=== PATIENT | female | born 1960 | race Caucasian/White ===

== ENCOUNTER → 2016-10-26 | Outpatient (CLI) | payer OTHER ==
[~2016-10-26] MED LIST: TAPAZOLE
--- NOTE | 2016-10-26 09:34 | DIAGNOSTIC IMAGING REPORT ---
RIGHT KNEE RADIOGRAPHS WITH COMPARISON STANDING AP RADIOGRAPH OF THE LEFT KNEE CLINICAL HISTORY: Right knee pain. COMPARISON: None FINDINGS: Comparison standing AP view of the left knee demonstrate minimal osteophytosis within the medial compartment. Alignment of the right knee is anatomic. No acute fracture or joint effusion. There is minimal medial compartment and joint space narrowing with osteophytosis. There is mild spurring of the patella at the insertion of the quadriceps. There is minimal joint space narrowing and osteophytosis within the patellofemoral compartment. IMPRESSION: 1. Mild arthritis within the medial and patellofemoral compartments of the right knee. 2. No fracture or joint effusion the right knee. Electronically signed by: Reji Rojas M.D. 10/26/2016 9:33 AM Dictated Date/Time: 10/26/2016 9:31 AM
== END | disposition home or self-care (01) ==
LOC: C.RDSM 08:36
PROVIDERS: ATTEND Family Medicine
DX: M25.561 Pain in right knee (principal)

== ENCOUNTER → 2016-11-22 | Outpatient (CLI) | payer OTHER ==
--- NOTE | 2016-11-23 07:39 | DIAGNOSTIC IMAGING REPORT ---
LUMBAR SPINE 5 VIEWS HISTORY: LOW BACK PAIN COMPARISON: None. FINDINGS: There is no fracture. No subluxation. Mild levoscoliosis of the lumbar spine. The sacrum appears intact. Mild facet degenerative changes within the lower lumbar spine. Mild disc space narrowing at L2-L3 and L3-L4. A few small endplate osteophytes at the mid lumbar spine. IMPRESSION: 1. No fracture or subluxation within the lumbar spine. 2. Mild degenerative changes as described above. 3. Mild levoscoliosis. Electronically signed by: Anthony Nazario M.D. 11/23/2016 7:37 AM Dictated Date/Time: 11/23/2016 7:35 AM
== END | disposition home or self-care (01) ==
LOC: C.RDSM 09:40
PROVIDERS: ATTEND Family Medicine
DX: M54.5 Low back pain (principal)

== ENCOUNTER → 2017-10-26 | Outpatient (CLI) | payer OTHER ==
--- NOTE | 2017-10-25 09:18 | DIAGNOSTIC IMAGING REPORT ---
RIGHT ELBOW 3 VIEWS HISTORY: RIGHT ELBOW/ARM PAIN-H/O 2 RADIAL HEAD FRACTURES COMPARISON: None. FINDINGS: No acute fracture or dislocation within the right elbow. Radial head deformity consistent with old, healed fracture. No elbow effusion. Soft tissues are unremarkable. No radiopaque foreign bodies. IMPRESSION: No acute fracture or dislocation within the right elbow. Old, healed radial head fracture. Electronically signed by: Anthony Nazario M.D. 10/25/2017 9:16 AM Dictated Date/Time: 10/25/2017 9:15 AM
== END | disposition home or self-care (01) ==
LOC: C.RDSM 10:39
PROVIDERS: ATTEND Family Medicine
DX: M25.521 Pain in right elbow (principal); Z87.81 Personal history of (healed) traumatic fracture